=== PATIENT | female | born 1965 | race Caucasian/White ===

== ENCOUNTER 2025-09-11 06:43 | Inpatient (IN) | payer MEDICAID ==
--- NOTE | 2025-09-03 14:37 | ELECTROCARDIOGRAPH REPORT ---
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 Irene Treviño Measurements Intervals [place] Rate: 61 P: 71 [place]: 174 QRS: 70 QRSD: 99 T: 64 QT: 455 QTc: 459 Interpretive Statements Sinus rhythm Minimal ST elevation, anterior leads Electronically Signed On 09-03-2025 20:12:[address] Irene Treviño Please click the below link to view image of tracing.
[2025-09-03 14:52] LABS: MEAN PLATELET VOLUME 8.9 FL (7.4-10.4); PRE OP HEMATOCRIT 39.0 % (35.0-45.0); PRE OP HEMOGLOBIN 13.3 g/dL (12.0-16.0); PRE OP PLATELET COUNT 292 X10'3 (140-440); PRE OP WHITE BLOOD COUNT 5.9 10'3 (4.8-10.8); RED CELL DISTRIBUTION WIDTH 13.9 % (11.5-14.5)
[2025-09-03 15:14] LABS: CREATININE 0.88 MG/DL (0.40-0.90); PRE OP ALT 17 U/L (30-65); PRE OP ANION GAP 3 (8-16); PRE OP AST 15 U/L (10-37); PRE OP BILIRUB, TOTAL 0.2 MG/DL (0.0-1.0); PRE OP GLUCOSE 113 MG/DL (70-104); PRE OP POTASSIUM 4.1 MMOL/L (3.4-5.1); PRE OP SODIUM 141 MMOL/L (135-145); TOTAL CARBON DIOXIDE 31.1 MMOL/L (24-32); eGFR 65 ML/MIN
[2025-09-11] VITALS (26 sets, daily range): BP systolic 118–175; BP diastolic 56–124; PULSE 46–66; RESP 11–20; TEMP 97.1–98; O2SAT 92–100
[~2025-09-11] VITALS: Ht 172.7 cm; Wt 80.1 kg
[2025-09-11] MEDS: DOCUMENT DATE & TIME OF BETA-BLOCKER PO ONE (05:30)
[2025-09-11] MEDS: ceFAZolin 2gm/dext,iso 50mL 50 ML IV ONE (05:30)
[~2025-09-11 06:43] MED LIST: ASPI-1053 PO; BUSP10TA3 PO; CARV3.1291 PO; LOSA-416 PO; PARO20TA6 PO
[2025-09-11] MEDS ORDERED: oxyCODONE IR 5mg (immed. release) tablet PO PRN ×2 (07:05→10:00)
[2025-09-11] MEDS ORDERED: PCA WASTE DOCUMENTATION 1 MG ML MC SCH (07:05)
[2025-09-11] MEDS ORDERED: HYDROmorphone/PF 0.2 MG/ML SYRINGE IV PRN (07:05)
[2025-09-11] MEDS ORDERED: magnesium hydroxide 30ml (MOM) UD suspension PO PRN (07:05)
[2025-09-11] MEDS ORDERED: bisacodyl 10mg suppository rectal RC PRN (07:05)
[2025-09-11] MEDS ORDERED: ondansetron/PF 4mg/2ml inj IV PRN (07:05)
[2025-09-11] MEDS ORDERED: ROPIVAcaine 0.5% (5mg/ml) 30ml vial ONE ×2 (07:23→11:16)
[2025-09-11] MEDS: ringers solution, lacted 1,000 ML IV SCH ×2 (07:26→12:21)
[2025-09-11] MEDS: VANCOMYCIN/H2O 1.5g/300mL PB 300 ML IV ONE (07:26)
[2025-09-11] MEDS ORDERED: MIDAZolam 1mg/ml 10ml vial ONE (08:47)
[2025-09-11] MEDS ORDERED: propofol inj 20 ML IV ONE ×2 (09:08)
[2025-09-11] MEDS ORDERED: labetalol 20mg/4ml (5mg/ml) syringe IV PRN (09:40)
[2025-09-11] MEDS ORDERED: ROPIVAcaine 0.2% (10 MG/5 ML) BOLUS INJECTION ADDCANAL PRN (09:40)
[2025-09-11] MEDS ORDERED: hydrALAZINE 20mg/ml inj. IV PRN (09:40)
[2025-09-11] MEDS ORDERED: morphine 4 MG/ML inj SYRINge IV PRN (09:40)
--- NOTE | 2025-09-11 09:48 | ANESTHESIA RECORDS ---
Nerve Block Providers to CC CC: MARCIANO RAMIREZ MD ~ Diagnosis: Nerve Block requested by: MARCIANO RAMIREZ MD Neuraxial/Peripheral Nerve Block requested for Post-operative analgesia by Physician above DIAGNOSIS: Post-operative pain. (Body Area) Shoulder: [ ] Arm: [ ] Hand: [ ] Hip: [ ] Knee: [ ] Ankle: [ ] Foot: [ ] Leg: [ ] Abdomen: [ ] Other: [ ] Post-operative pain expected to be/is inadequately managed by oral or IV medicines. Regional anesthetic expected to facilitate rehabilitation and/or discharge from facility. Other:[ _] Procedure Performed: Femoral / Saphenous: Right Time out Done?: Yes Time of Time out: 08:56 Procedure Details: PROCEDURE DETAILS: Risks, benefits and alternatives explained Informed consent obtained, and patient wishes to proceed Conscious sedation with indicated monitors Patient positioned, pertinent anatomy defined, sterile technique used Needle used: [ ] 3 1/8 inch Stimuplex Ultra 22ga [ ] 4 inch Stimuplex Ultra 20ga [ ] 6 inch Stimuplex Ultra 20ga [ ] 6 inch, Quikbloc over the needle catheter set 20ga [X ] 4 inch Quikbloc over the needle catheter set 20ga [ ]Other: [ ] Loss of twitch @ [ ]mA [ ] Single Injection [ X] Catheter Ultrasound Guidance Used: [X ] Yes [ ] No Attempts:[__1 ] Medicines injected: [ ]Clonidine Amt:[ ] [ ]Dexamethasone Amt:[ ] [ X ]Ropivacaine Amt:[0.5% 30 c.c ] [ ]Bupivacaine Amt:[ ] [ ]Lidocaine Amt:[ ] [ ]Exparel 1.33%:[ ] [ ]Epinephrine Amt[ ] [ ]Other: [ ] Intermittent aspiration during local anesthetic administration No symptoms of intraneural or intravenous injection Patient tolerated procedure well Comments Right mid medial thighis examined with ultrasound and Adductor canal and vessels in the canal in the canal are identified. Catheter over needle is placed in the canal. Sfter negative aspirations Local is injected,spread is noted. Needle is removed,catheter is secured. Sterile dressings applied. Ultrasound images captured,documented. On Q pump is ordered for the postoperative pain mangement. YOANNA AMARAL MD Sep 11, 2025 09:48
--- NOTE | 2025-09-11 11:43 | OPERATIVE REPORT ---
Operative Report Operative Report Procedure: Computer-assisted, robotically-assisted, right total knee arthroplasty. Surgeon: Dr. Ritesh Roberson Licensed [employer] Appraiser: Shyanne Low PA-C Anesthesiologist: Dr. Moon Anesthesia: Spinal anesthetic Indications: 59-year-old female who has chronic osteoarthritis of the right knee with severe pain and limitation of activities despite extensive non- operative management. This patient has had extensive conservative treatment of knee joint arthritis, including rest, external joint support, anti-inflammatory medications, physical therapy, and corticosteroid injection. Physical therapy has been provided, along with a home exercise program prior to making the decision to proceed with surgical treatment. This therapeutic intervention did not provide any substantial relief of symptoms or improvement in function. The patient has been utilizing a cane, set of crutches, or walker, for more than 3 months prior to deciding to proceed with surgery. These interventions have not provided sufficient relief of pain to allow improvement in function. The patient has utilized non-steroidal anti-inflammatory medications for relief of pain over an extended period of time (more than 2 months), and has not experienced sufficient improvement in symptoms. Despite these treatments, this patient has continued difficulties with pain and limited function. They are unable to walk long distances, do vigorous activities, sit or sleep comfortably. Total knee replacement is the next reasonable step in terms of treatment. 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 This facilitated operative exposure, manipulation and handling of tissues, placement of any implants, and accomplishment of wound closure. Findings: There was indeed a very severely arthritic knee, with loss of cartilage, exposed bone, and marginal osteophytes. The lateral compartment was particularly bad. A 60 degree valgus deformity and 60 of flexion were measured preoperatively. Post operative alignment was 0.5 extension, and 0.5 varus. Complications: None Estimated Blood Loss: 150 cc Implants: A Aida Persona CR total knee system was utilized with a size eight right bone ingrowth femoral component, and a size E right bone ingrowth tibial component. A 10 mm medial congruent right tibial insert was utilized. The [employer] robotically assisted total knee arthroplasty system and computer was utilized. Procedure: The risks, benefits, expected results, and possible complications of the planned procedure had been explained to the patient and informed consent obtained. The patient was taken to the operating room and underwent a spinal anesthetic. The patient was placed in the supine position on the operating table, and the right leg was prepped and draped in the usual fashion. A timeout was taken prior to surgery, confirming patient identification, operative side operative site, planned procedure, administration of pre-operative antibiotics, site marking, and presence of all necessary implants and instruments, x-rays and equipment. A standard anterior, slightly mediall approach was performed with a medial parapatellar arthrotomy, and a VMO split. Time was then spent removing excessive synovial tissue and exposing the medial and lateral gutters, as well as moving the anterior sections of the residual menisci. The patella was mobilized to be able to be retracted laterally. This gave exposure of the anterior aspect of the knee. Attention was then directed to the patella. The patella was in excellent condition so we decided not to resurface the patella. Infrared arrays were then placed on the femur and the tibia. Utilizing the [employer] computer system, the hip, knee, and ankle were landmarked in usual fashion. The initial alignment measurements were then taken confirming the above listed deformity. Surgical planning was then carried out on the computer, confirming alignment of components, sizing, and gap balancing. Appropriate soft tissue releases were performed. The robot was then utilized to make the distal femoral cut. The femur was prepared in 4 degrees of flexion and neutral coronal alignment. The distal femoral 4 in 1 block was placed with the robot, and the remaining femoral cuts also performed. The robot was then utilized to cut the proximal tibia in 5 degrees of flexion and neutral coronal alignment. The computer was then utilized to check longitudinal alignment and soft tissue balance, and this confirmed excellent alignment. Next the dynamic balancing block was utilized to check and adjust soft tissue balancing. The trial implant was sized and properly rotated, and the peg drilling performed. Final check of alignment and balancing was then carried out with trials in place, as well as final removal and cleaning up of soft tissue such as meniscal remnants and osteophytes. Finally, attention was directed to the proximal tibia. The implant was sized and properly rotated, and the fin punch performed. Final check of alignment and balancing was then carried out, as well as final removal and cleaning up of soft tissue such as meniscal remnants and osteophytes. The tibia was impacted with the mallet, seating it quite nicely in its proper rotational alignment. The femoral cuts were cleaned with a pulsating lavage and then dried with the lap sponges, and the femur was impacted into position with a mallet. Pressure was held on the femoral component and tibia by placing a spacer and bringing the leg to full extension and applying axial and hyperextension force. After final irrigation and suction of excess fluid. The knee was infiltrated with our intraoperative local anesthetic mix for postoperative pain control. The tibial and femoral navigation pins and arrays were removed. The wound was then closed in layers including retinacular closure, subcutaneous tissue, and skin. Sterile dressing was applied and the patient was returned to the recovery room in satisfactory condition. RITESH ROBERSON MD Sep 11, 2025 11:43
[2025-09-11] MEDS: ROPIVAcaine 0.2%/PF PUMP/bolus 545 ML ADDCANAL SCH (12:34)
[2025-09-11] MEDS: ondansetron/PF 4mg/2ml inj IV PRN (12:35)
[2025-09-11] MEDS: scopolamine 1MG/72H patch 1 PATCH PATCH.TD.3 TD SCH (12:49)
[2025-09-11] MEDS ORDERED: dexamethasone sod phosphate 4mg/ml inj. IV ONE (14:10)
[2025-09-11] MEDS: aprepitant 40mg capsule PO ONE ×2 (14:35→14:45)
[2025-09-11] MEDS: dexamethasone 4mg/ml inj IV ONE (14:40)
[2025-09-11] MEDS: ceFAZolin/D5W- 1GM premix 50 ML IV SCH (20:07)
[2025-09-11] MEDS: vancomycin/NS 1 GM ADD-VANTAGE 250 ML IV SCH (22:37)
[2025-09-11] MEDS: potassium cl 20mEq in 1/2 NS 1,000 ML IV SCH (22:49)
[2025-09-12 02:00] VITALS: BP 109/44; PULSE 58; RESP 14; TEMP 97.4; O2SAT 95
[2025-09-12 05:08] LABS: MEAN PLATELET VOLUME 9.7 FL (7.4-10.4); RED CELL DISTRIBUTION WIDTH 13.6 % (11.5-14.5)
[2025-09-12 05:11] LABS: TOTAL CARBON DIOXIDE 25.6 MMOL/L (24-32)
[2025-09-12 06:00] VITALS: BP 124/70; PULSE 83; RESP 15; TEMP 97.4; O2SAT 97
--- NOTE | 2025-09-12 06:56 | DISCHARGE SUMMARY ---
Discharge Summary Ortho CC ~ Discharge Summary *Problems/Diagnosis: (1) S/P total knee arthroplasty Status: Acute Admission Diagnosis: osteoarthritis Discharge Diagnosis\Comment: see above Operations\Procedures see above Consultants: none Complications: none Condition on DC: Stable Discharge Summary: Patient was admitted on date of surgery. Surgery went without complication. Uneventful overnight stay. Pain managed. Dressing clean and dry. Patient stable for discharge home as long as PT criteria met today. Total Time Spent on D/C: Up to 30 Minutes Medications Home Meds: Home Medications Active Reported Paroxetine HCl 20 Mg Tablet 1 Tab PO DAILY Carvedilol 3.125 Mg Tablet 1 Tab PO BID 30 Days Buspirone HCl 10 Mg Tablet 1 Tab PO TID 30 Days Chandrika Chewable (Aspirin) 81 Mg Tab.chew 81 Mg PO DAILY Cozaar* (Losartan Potassium) 50 Mg Tablet 2 Tab PO DAILY Supervising Physician Supervising Physician: Dr. Ritesh Roberson Problem Qualifiers (1) S/P total knee arthroplasty: Qualified Codes: Z96.651 - Presence of right artificial knee joint [facility] Sep 12, 2025 06:56
[2025-09-12 10:21] VITALS: BP 140/61; PULSE 63; RESP 16; TEMP 97.4; O2SAT 98
== END 2025-09-12 12:10 | disposition home or self-care (01) | DRG 326 ==
LOC: PAS IN 06:43 → ORTHO 4S 14:48
PROVIDERS: ADMIT Orthopaedic Surgery; ATTEND Orthopaedic Surgery
PROC: 0JH80VZ Insertion of Infusion Pump into Abdomen Subcutaneous Tissue and Fascia, Open Approach (ICD-10-PCS; 2025-09-11)
PROC: 8E0YXBZ Computer Assisted Procedure of Lower Extremity (ICD-10-PCS; 2025-09-11)
PROC: 3E013BZ Introduction of Anesthetic Agent into Subcutaneous Tissue, Percutaneous Approach (ICD-10-PCS; 2025-09-11)
PROC: 0SRC0JZ Replacement of Right Knee Joint with Synthetic Substitute, Open Approach (ICD-10-PCS; principal; 2025-09-11 08:51)
DX: M17.11 Unilateral primary osteoarthritis, right knee (principal); Z79.899 Other long term (current) drug therapy; Z88.0 Allergy status to penicillin; Z91.09 Other allergy status, other than to drugs and biological substances
CPT/HCPCS: 36415; 80051; 80053; 82948; 85025; 87081; 93005; 97161; 97530; A4215; A6449; A7000; C1776; C9250; G0378; J0690; J1100; J2250; J2405; J2704; J2795; J3373; J3375; J3480; J7120; J8501